=== PATIENT | male | born 1990 | race Two or more races ===

== ENCOUNTER 2024-08-29 08:43 | Emergency (ER) | payer OTHER ==
[~2024-08-29] VITALS: Ht 177.8 cm; Wt 90.7 kg
[2024-08-29 09:37] VITALS: BP 128/93; TEMP 98.1; O2SAT 97
== END 2024-08-29 09:38 ==
LOC: ER 08:46
DX: F41.9 Anxiety disorder, unspecified (principal); R00.0 Tachycardia, unspecified; Z02.89 Encounter for other administrative examinations